=== PATIENT | male | born 2000 | race Caucasian/White ===

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

== ENCOUNTER 2018-05-30 13:55 | Emergency (ER) | payer OTHER ==
[2018-05-30 14:03] VITALS: BP 120/82; PULSE 82; TEMP 97.8; BMI 22.5
--- NOTE | 2018-05-30 14:20 | PDOC ---
History of Present Illness - General Chief Complaint: Urinary Problem Stated Complaint: URINARY PROBLEM Time Seen by Provider: 05/30/18 14:04 History Source: Patient Exam Limitations: No Limitations - History of Present Illness Travel History: No Initial Comments: 05/30/18 14:14 18 yr male with 1 month burning on urination. denies penile drainage or abd pain no fever no vomiting. pt denies any sexual relations for 4 months. Timing/Duration: reports: constant Past History - Past Medical History Allergies/Adverse Reactions: Allergies Allergy/AdvReac Type Severity Reaction Status Date / Time No Known Allergies Allergy Verified 05/30/18 14:00 Home Medications: Ambulatory Orders NK [No Known Home Medication] 05/30/18 COPD: No - Immunization History Immunization Up to Date: Yes - Suicide/Smoking/Psychosocial Hx Smoking History: Never smoked Have you smoked in the past 12 months: No Hx Alcohol Use: No Drug/Substance Use Hx: No Substance Use Type: None Review of Systems - Review of Systems Able to Perform ROS?: Yes Is the patient limited Mohawk proficient: No : Yes: Symptoms Reported *Physical Exam - Vital Signs Last Vital Signs Temp Pulse Resp BP Pulse Ox 97.8 F 82 16 120/82 99 05/30/18 14:01 05/30/18 14:01 05/30/18 14:01 05/30/18 14:01 05/30/18 14:01 - Physical Exam General Appearance: Yes: Nourished, Appropriately Dressed HEENT: positive: EOMI, GRAEME, Normal ENT Inspection Neck: positive: Supple Respiratory/Chest: positive: Lungs Clear, Normal Breath Sounds Gastrointestinal/Abdominal: negative: Tender Male Genitalia: positive: normal genitalia. negative: discharge, testicular tenderness, testicular mass Lymphatic: negative: Adenopathy Extremity: positive: Normal Capillary Refill, Normal Inspection, Normal Range of Motion Integumentary: positive: Normal Color, Dry, Warm Neurologic: positive: Fully Oriented, Alert, Normal Mood/Affect, Normal Response , Motor Strength 5/5 Medical Decision Making - Medical Decision Making 05/30/18 14:14 cc: urinary burning no discharge denies testicle pain neg abd pain ng nvd or fever no known STD exposure or STD history will r/o Gc chlamydia UTI *DC/Admit/Observation/Transfer Diagnosis at time of Disposition: Dysuria - Discharge Dispostion Disposition: HOME Condition at time of disposition: Good - Referrals Schedule a call back: call back lab Referrals: Nestor Layne MD [Primary Care Provider] - - Patient Instructions Additional Instructions: we will notify you if the culture is positive in the mean time refrain from any sexual contact until we notify you of the results - Post Discharge Activity
[2018-05-30 15:23] LABS: URINE APPEARANCE CLEAR; URINE BILIRUBIN NEGATIVE (<2.0 mg/dL); URINE COLOR STRAW; URINE GLUCOSE (UA) NEGATIVE (NEGATIVE); URINE KETONE NEGATIVE (NEGATIVE); URINE LEUK ESTERASE 1+ (NEGATIVE); URINE NITRITE NEGATIVE (NEGATIVE); URINE PROTEIN NEGATIVE (NEGATIVE); URINE UROBILINOGEN NEGATIVE mg/dL (0.2-1.0)
[2018-05-30 15:29] LABS: EPI CELLS RARE /HPF (FEW); URINE BACTERIA RARE /hpf (NONE SEEN)
[2018-05-30] MEDS ORDERED: AZITHROMYCIN 500 MG TABLET PO ONE (15:32)
[2018-05-30] MEDS ORDERED: AZITHROMYCIN 250 MG TABLET ONE (15:53)
== END 2018-05-30 16:01 | disposition home or self-care (01) ==
LOC: JERFT 13:55
DX: R30.0 Dysuria (principal)
CPT/HCPCS: 36415; 81003; 81015; 87491; 87591; 99281-25

== ENCOUNTER 2018-09-03 22:26 | Emergency (ER) | payer OTHER ==
[2018-09-03 22:32] VITALS: BP 106/59; PULSE 66; TEMP 98.3; BMI 22.9
--- NOTE | 2018-09-03 22:38 | PDOC ---
History of Present Illness - General Chief Complaint: Cold Symptoms Stated Complaint: FEVER COUGHING BACKACE Time Seen by Provider: 09/03/18 22:36 - History of Present Illness Initial Comments: 09/03/18 22:37 18-year-old male without comorbidities presents for evaluation of fever and cough and body aches 4 days his fever stopped today and he is starting to feel better. Past History - Past Medical History Allergies/Adverse Reactions: Allergies Allergy/AdvReac Type Severity Reaction Status Date / Time No Known Allergies Allergy Verified 05/30/18 14:00 Home Medications: Ambulatory Orders NK [No Known Home Medication] 05/30/18 COPD: No - Immunization History Immunization Up to Date: Yes - Suicide/Smoking/Psychosocial Hx Smoking History: Never smoked Have you smoked in the past 12 months: No Hx Alcohol Use: No Drug/Substance Use Hx: No Substance Use Type: None Review of Systems - Review of Systems Constitutional: Yes: Fever Respiratory: Yes: Cough *Physical Exam - Vital Signs Last Vital Signs Temp Pulse Resp BP Pulse Ox 98.3 F 66 18 106/59 L 98 09/03/18 22:31 09/03/18 22:31 09/03/18 22:31 09/03/18 22:31 09/03/18 22:31 - Physical Exam Comments: 09/03/18 22:37 HEAD: NC/AT EYES: Conjuntiva clear Ears: Canals and TM's normal NOSE: No d/c THROAT: Moist mucous membrances, oral pharanx clear, uvula midline NECK: Supple without adenopathy CARDIAC: S1 S2 LUNGS: CTA Full and Equal breath sounds ABDOMEN: Soft NT ND MS: Full ROM in all joints without edema NEUROLOGIC: No gross sensory or motor deficits, NVID SKIN: Normal color and temperature no lesions or rashes Moderate Sedation - Procedure Monitoring Vital Signs: Procedure Monitoring Vital Signs Temperature 98.3 F 09/03/18 22:31 Pulse Rate 66 09/03/18 22:31 Respiratory Rate 18 09/03/18 22:31 Blood Pressure 106/59 L 09/03/18 22:31 O2 Sat by Pulse Oximetry (%) 98 09/03/18 22:31 *DC/Admit/Observation/Transfer Diagnosis at time of Disposition: Upper respiratory infection - Discharge Dispostion Disposition: HOME Condition at time of disposition: Stable Decision to Admit order: No - Referrals Referrals: Ean Mcmahan [Non Staff, Medical] - - Patient Instructions Printed Discharge Instructions: DI for Viral Upper Respiratory Infection -- Adult Additional Instructions: Return to the emergency room should symptoms worsen. Continue with Tylenol and Motrin for fever and body ache should you require follow-up with internal medicine in one to 2 days for further evaluation and treatment options. - Post Discharge Activity Forms/Work/School Notes: Back to Work
== END 2018-09-03 22:46 | disposition home or self-care (01) ==
LOC: JERFT 22:26
DX: R09.81 Nasal congestion (principal); B34.9 Viral infection, unspecified
CPT/HCPCS: 99281-25

== ENCOUNTER 2020-08-21 22:29 | Emergency (ER) | payer OTHER ==
[2020-08-21 22:45] VITALS: PULSE 85; TEMP 98.1; BMI 21.4
[2020-08-22 01:34] VITALS: BP 118/80
== END 2020-08-22 01:38 | disposition home or self-care (01) ==
LOC: JER 22:29
DX: R07.1 Chest pain on breathing (principal); M25.511 Pain in right shoulder
CPT/HCPCS: 71046-TC-FY; 93005; 93010; 99284-25